=== PATIENT | female | born 1985 | race African-American/Black ===

== ENCOUNTER 2016-11-23 04:03 | Emergency (ER) | payer MEDICAID ==
[~2016-11-23] VITALS: Ht 157.5 cm; Wt 64.8 kg
[2016-11-23] MEDS ORDERED: SODIUM CHLORIDE 0.9% 1,000 ML IV ONE (06:13)
[2016-11-23] MEDS ORDERED: ONDANSETRON HCL 4MG/2ML VIAL IV STA (06:13)
[2016-11-23] MEDS ORDERED: MORPHINE SULFATE 4 MG/ML CPJ (NOT FOR IM USE) IV STA (06:13)
[2016-11-23 06:35] LABS: BASOPHILS % 0.4 % (0.0-2.0); EOSINOPHILS % 0.8 % (0.0-5.0); HEMATOCRIT. 43.9 % (36.0-48.0); HEMOGLOBIN. 14.7 g/dL (12.0-16.0); LYMPHOCYTES % 22.1 % (20.0-50.0); MEAN CORPUSCULAR HEMOGLOBIN 29.9 pg (28.0-32.0); MEAN CORPUSCULAR VOLUME 88.8 fL (81.0-99.0); MEAN PLATELET VOLUME 8.8 fl (7.4-10.4); MONOCYTES % 7.3 % (2.0-8.0); NEUTROPHILS % 69.4 % (40.0-76.0); PLATELET 239 x1000/uL (130-400); RED BLOOD CELL COUNT 4.94 mill/uL (4.2-5.4); RED CELL DISTRIBUTION WIDTH 13.3 % (11.6-14.6)
[2016-11-23 06:45] LABS: D-DIMER < 0.19 mg/L FEU (<0.50); PARTIAL THROMBOPLASTIN TIME 28.2 sec (23.4-31.0); PROTHROMBIN TIME 10.3 sec (9.4-11.6)
[2016-11-23 06:50] LABS: GLUCOSE URINE NEGATIVE (NEGATIVE); KETONES URINE NEGATIVE (NEGATIVE); LEUKOCYTE ESTERASE URINE NEGATIVE (NEGATIVE); NITRITE URINE NEGATIVE (NEGATIVE); OCCULT BLOOD URINE NEGATIVE (NEGATIVE); PH URINE 6.5 (4.5-8.0); PROTEIN URINE NEGATIVE (NEGATIVE); UROBILINOGEN URINE 0.2 E.U./dL (0.2-1.0)
[2016-11-23 06:51] LABS: CARBON DIOXIDE 26 mEq/L (21-32); CHLORIDE 105 mEq/L (98-107); CREATINE KINASE 111 IU/L (26-192); CREATINE KINASE MB FRACTION < 0.5 ng/mL (0.5-3.6); TROPONIN I < 0.02 ng/mL (0.00-0.04)
[2016-11-23 06:54] LABS: HCG SCREEN NEGATIVE
[2016-11-23 06:56] LABS: CLARITY URINE CLEAR (CLEAR); COLOR URINE YELLOW (YELLOW)
[2016-11-23 09:08] VITALS: BP 108/54
== END 2016-11-23 09:10 | disposition home or self-care (01) ==
LOC: ER 07:19
DX: R10.13 Epigastric pain (principal); M54.89 Other dorsalgia; G89.29 Other chronic pain; R03.0 Elevated blood-pressure reading, without diagnosis of hypertension; K29.70 Gastritis, unspecified, without bleeding
CPT/HCPCS: 36415; 71010; 72070; 80053; 81003; 82550; 82553; 83690; 83880; 84484; 84703; 85025; 85379; 85610; 85730; 93005; 93970; 96361; 96374; 96375; 99285; J2270; J2405; Z7610; J7030